=== PATIENT | male | born 1990 | race Caucasian/White ===

== ENCOUNTER 2019-12-29 08:09 | Day surgery (SDC) | payer MEDICAID ==
[~2019-12-29] VITALS: Ht 195.6 cm; Wt 100.9 kg
[~2019-12-29 08:09] MED LIST: BUPIVACAINE/PF 0.5% ONE
[2019-12-29] MEDS ORDERED: LIDOCAINE/PF 1%-EPI 1:200K, 30 ML ONE (08:21)
[2019-12-29] MEDS ORDERED: LACTATED RINGERS 1,000 ML IV SCH (08:44)
[2019-12-29] MEDS ORDERED: OXYC-307 PO (08:46)
[2019-12-29 08:47] VITALS: BP 125/80
[2019-12-29] MEDS ORDERED: PLEASE ENTER HEIGHT AND WEIGHT MC SCH (09:00)
[2019-12-29] MEDS ORDERED: CHLORHEXIDINE 15 ML UDC MM ONE (09:00)
[2019-12-29] MEDS ORDERED: LIDOCAINE-MPF 1%, 2ML INFIL ONE (09:00)
[2019-12-29] MEDS ORDERED: MIDAZOLAM 1 MG/ML, 2ML ONE (09:22)
[2019-12-29] MEDS ORDERED: FENTANYL PF 100 MCG/2ML ONE ×2 (09:22→12:20)
[2019-12-29] MEDS ORDERED: PHENYLEPHRINE 10 MG/ML ONE (10:50)
[2019-12-29] MEDS ORDERED: GLYCOPYRROLATE 0.2MG/1ML, 5ML ONE (10:50)
[2019-12-29] MEDS ORDERED: ONDANSETRON 2MG/ML, 2ML ONE (11:30)
[2019-12-29] MEDS ORDERED: DEXAMETHASONE 4 MG/ML, 1ML ONE (11:30)
[2019-12-29] MEDS ORDERED: PROPOFOL 10 MG/ML, 20ML ONE (11:30)
[2019-12-29] MEDS ORDERED: BUPIVACAINE/PF 0.5% ONE (11:30)
[2019-12-29] MEDS ORDERED: CEFAZOLIN 1,000 MG ONE (11:30)
[2019-12-29] MEDS ORDERED: LIDOCAINE-MPF 2% ,5ML ONE (11:32)
[2019-12-29] MEDS ORDERED: OXYcodone 5 MG/5 ML ORAL.SOL UDC PO PRN (12:00)
[2019-12-29] MEDS ORDERED: HYDROmorphone 1 MG/ML, 1ML INJ IVPush PRN (12:00)
[2019-12-29] MEDS ORDERED: MEPERIDINE/PF 25MG/0.5ML IVPush PRN (12:00)
[2019-12-29] MEDS ORDERED: FENTANYL PF 100 MCG/2ML IV PRN (12:00)
[2019-12-29] MEDS ORDERED: ACETAMINOPHEN 325 MG TABLET PO PRN (12:00)
[2019-12-29] MEDS ORDERED: LORazepam 2 MG/ML, 1ML IVPush PRN (12:00)
[2019-12-29] MEDS ORDERED: PROMETHAZINE 25 MG/ML, 1ML IVPush PRN (12:00)
[2019-12-29] MEDS ORDERED: LABETALOL 5MG/ML, 20ML IV PRN (12:00)
[2019-12-29] MEDS ORDERED: ALBUTEROL SULFATE 2.5 MG/3 ML NPPB PRN (12:00)
[2019-12-29] MEDS ORDERED: MEPERIDINE/PF 25MG/ML,1ML ONE ×2 (12:20→12:30)
[2019-12-29] MEDS ORDERED: OXYcodone 5 MG/5 ML ORAL.SOL UDC ONE (12:20)
== END 2019-12-29 14:05 | disposition home or self-care (01) ==
LOC: OUT 08:09
PROVIDERS: ATTEND Orthopaedic Surgery
DX: S43.431A Superior glenoid labrum lesion of right shoulder, initial encounter (principal); Z20.828 Contact with and (suspected) exposure to other viral communicable diseases; G89.18 Other acute postprocedural pain; M19.011 Primary osteoarthritis, right shoulder; M75.41 Impingement syndrome of right shoulder; M65.811 Other synovitis and tenosynovitis, right shoulder; M75.51 Bursitis of right shoulder; M77.01 Medial epicondylitis, right elbow; Z79.891 Long term (current) use of opiate analgesic; Z88.2 Allergy status to sulfonamides; V89.2XXA Person injured in unspecified motor-vehicle accident, traffic, initial encounter; Y93.89 Activity, other specified; Y92.89 Other specified places as the place of occurrence of the external cause; Y99.8 Other external cause status
CPT/HCPCS: 29823; 29824; 29826; 36415; 64415; 87635; J0690; J1100; J2175; J2250; J2370; J2405; J2704; J3490; J7120; J3010